=== PATIENT | male | born 1960 | race Caucasian/White ===

== ENCOUNTER 2019-06-17 07:28 | Day surgery (SDC) | payer MEDICAID ==
[~2019-06-17] VITALS: Ht 185.4 cm; Wt 79.5 kg
[2019-06-17 07:35] VITALS: BP 128/91
[2019-06-17] MEDS ORDERED: fentaNYL/PF 50MCG/1 ML 2ML syringe ONE (07:41)
[2019-06-17] MEDS ORDERED: MIDAZolam 5mg/5ml vial ONE (07:42)
[2019-06-17] MEDS ORDERED: LIDOcaine Viscous 15ml cup ONE (07:42)
[2019-06-17] MEDS ORDERED: VENL75CA55 PO (08:36)
[2019-06-17] MEDS ORDERED: FLO0.4C PO (08:37)
[2019-06-17 08:38] VITALS: BP 134/45
[2019-06-17] MEDS ORDERED: CLON-528 PO (08:38)
[2019-06-17] MEDS ORDERED: ATOR10TA11 PO (08:38)
[2019-06-17] MEDS ORDERED: METF-438 PO (08:39)
[2019-06-17] MEDS ORDERED: METF500T20 PO (08:40)
[2019-06-17] MEDS ORDERED: MULT-227 PO (08:41)
[2019-06-17] MEDS ORDERED: PANT-47 PO (08:42)
[2019-06-17] MEDS ORDERED: TEMA15CA5 PO (08:44)
[2019-06-17] MEDS ORDERED: TRAM50TA2 PO (08:46)
[2019-06-17] MEDS ORDERED: BUPR-94 PO (08:46)
[2019-06-17] MEDS ORDERED: KEP500T PO (08:47)
[2019-06-17 08:48] VITALS: BP 132/69
[2019-06-17] MEDS ORDERED: LAMO100T PO (08:48)
[2019-06-17] MEDS ORDERED: CLON-527 PO (08:48)
[2019-06-17] MEDS ORDERED: HALO5TAB PO (08:49)
[2019-06-17] MEDS ORDERED: TRIH5TAB2 PO (08:50)
[2019-06-17 08:58] VITALS: BP 129/70
[2019-06-17 09:08] VITALS: BP 149/88
== END 2019-06-17 09:10 | disposition home or self-care (01) ==
LOC: GI LAB 07:28
PROVIDERS: ATTEND Internal Medicine Gastroenterology
DX: R11.2 Nausea with vomiting, unspecified (principal); K21.0 Gastro-esophageal reflux disease with esophagitis; K44.9 Diaphragmatic hernia without obstruction or gangrene; K25.9 Gastric ulcer, unspecified as acute or chronic, without hemorrhage or perforation; K29.50 Unspecified chronic gastritis without bleeding
CPT/HCPCS: 43239; 99152; J2250; J3010; J7040; A4620

== ENCOUNTER 2021-03-07 11:40 | Inpatient (IN) | payer MEDICAID ==
[~2021-03-07] VITALS: Ht 167.6 cm; Wt 80.0 kg
[~2021-03-07 11:40] MED LIST: ATOR10TA11 PO; BUPR-94 PO; CLON-527 PO; CLON-528 PO; FLO0.4C PO; HALO5TAB PO; KEP500T PO; LAMO100T PO; METF-900 PO; MULT-227 PO; PANT-47 PO; TEMA15CA5 PO; TRAM50TA2 PO; TRIH5TAB3 PO; VENL75CA55 PO
[2021-03-07 12:14] LABS: BASOPHILS # (AUTO) 0.1 X10'3 (0-0.2); BASOPHILS % (AUTO) 1.1 % (0-1); EOSINOPHILS # (AUTO) 0.2 X10'3 (0-0.9); EOSINOPHILS % (AUTO) 2.5 % (0-6); LYMPHOCYTES # (AUTO) 1.2 X10'3 (1.1-4.8); LYMPHOCYTES % (AUTO) 16.6 % (21-51); MEAN CORPUSCULAR HEMOGLOBIN 24.3 PG (27.0-31.0); MEAN CORPUSCULAR HGB CONC 31.6 g/dL (33.0-36.5); MEAN CORPUSCULAR VOLUME 76.8 FL (78-98); MEAN PLATELET VOLUME 7.1 FL (7.4-10.4); MONOCYTES # (AUTO) 0.7 X10'3 (0-0.9); MONOCYTES % (AUTO) 9.7 % (2-12); NEUTROPHILS # (AUTO) 5.1 X10'3 (1.8-7.7); NEUTROPHILS % (AUTO) 70.1 % (42-75); PLATELET COUNT 393 X10'3 (140-440); RED CELL DISTRIBUTION WIDTH 19.9 % (11.5-14.5); WHITE BLOOD COUNT 7.3 X10'3 (4.5-11.0)
[2021-03-07 12:27] LABS: HEMATOCRIT 21.5 % (42.0-52.0); HEMOGLOBIN 6.8 g/dl (14.0-17.9); PARTIAL THROMBOPLASTIN TIME 24 SECONDS (22-32)
[2021-03-07 12:28] LABS: ALANINE AMINOTRANSFERASE 28 U/L (12-78); ALBUMIN 2.8 G/DL (3.4-5.0); ALBUMIN/GLOBULIN RATIO 0.9 (1.1-1.5); ALKALINE PHOSPHATASE 104 IU/L (46-116); ANION GAP 6 (8-16); ASPARTATE AMINO TRANSFERASE 23 U/L (10-37); BILIRUBIN,TOTAL 0.4 MG/DL (0.1-1.0); BLOOD UREA NITROGEN 19 MG/DL (7-18); BUN/CREATININE RATIO 25.3 (5.4-32.0); CALCIUM 8.2 MG/DL (8.5-10.1); CHLORIDE 108 MMOL/L (99-107); CREATININE 0.75 MG/DL (0.60-1.10); GLUCOSE 134 MG/DL (70-104); MAGNESIUM 1.9 MG/DL (1.5-2.4); POTASSIUM 3.7 MMOL/L (3.5-5.1); SODIUM 144 MMOL/L (135-145); TOTAL CARBON DIOXIDE 29.8 MMOL/L (24-32); TOTAL PROTEIN 5.8 G/DL (6.4-8.2); eGFR > 90 ML/MIN
[2021-03-07] MEDS ORDERED: LORazepam 2 mg/ml vial IV ONE ×2 (13:05→15:50)
[2021-03-07] MEDS: pantoprazole 40MG/NS 100ML BAG 100 ML IV SCH ×2 (13:13→19:16)
[2021-03-07 13:38] LABS: ANISOCYTOSIS 2+; HYPOCHROMASIA 2+; MICROCYTOSIS 1+; PLATELET ESTIMATE NORMAL
[2021-03-07 13:39] LABS: ELLIPTOCYTES 1+; SCHISTOCYTES FEW; TEAR DROP CELLS FEW
[2021-03-07] MEDS ORDERED: normal saline 1000ml 1,000 ML IV ONE (13:40)
--- NOTE | 2021-03-07 13:55 | NUR ---
PT'S MOTHER WAS CALLED, IT WAS REQUESTED BY PT'S RN TO SEE IF SHE COULD CONVINCE HER SON TO CONSENT TO A BLOOD TRANSFUSION FOR A GI BLEED. MESSAGE WAS LEFT ON PHONE #'S PROVIDER ON FILE
--- NOTE | 2021-03-07 14:19 | NUR ---
PT YELLING THAT HE IS HUNGRY, EXPLAINED THAT HE CAN NOT EAT DUE TO HAVING A POSSIBLE GI BLEED. PT REFUSING RECTAL EXAM OR ANY TREATMENT, STATING THAT "FUCK YOU...YOU ARE LYING, I DONT BELIEVE YOU, YOU DON'T KNOW WHAT YOU'RE TALKING ABOUT" PT STATING THAT HE WANTS TO GO HOME. PROVIDER NOTIFIED, DR ESPOSITO IS ON THE PHONE WITH HIS CONSERVITOR.
[2021-03-07] MEDS ORDERED: TRIH2TAB3 PO (15:06)
[2021-03-07] MEDS ORDERED: MUPI15CR12 TOP (15:06)
[2021-03-07] MEDS ORDERED: CLON1TAB95 PO (15:06)
[2021-03-07] MEDS ORDERED: TIOT18CA3 PO (15:06)
[2021-03-07] MEDS ORDERED: GABA-530 PO (15:06)
[2021-03-07] MEDS ORDERED: HYDR50TA65 PO (15:06)
[2021-03-07] MEDS ORDERED: TEMA7.5C2 PO (15:06)
[2021-03-07] MEDS ORDERED: FLO0.4C PO (15:08)
[2021-03-07] MEDS ORDERED: FINA5TAB11 PO (15:08)
[2021-03-07] MEDS ORDERED: potassium Cl 20 mEq SR tablet PO PRN ×2 (16:00)
[2021-03-07] MEDS ORDERED: magnesium 2GM in 50ml NS 50 ML IV PRN (16:00)
[2021-03-07] MEDS ORDERED: ondansetron/PF 4mg/2ml inj IV PRN (16:00)
[2021-03-07] MEDS ORDERED: magnesium Cl slow-release 64mg tablet PO PRN (16:00)
[2021-03-07] MEDS ORDERED: potassium CL 10mEq/100ml bag 100 ML IV PRN (16:00)
[2021-03-07] MEDS ORDERED: magnesium 4gm in 100ml NS 100 ML IV PRN (16:00)
[2021-03-07] MEDS ORDERED: acetaminophen 325mg tablet PO PRN (16:00)
[2021-03-07 16:12] VITALS: BP 95/53
[2021-03-07 16:43] VITALS: BP 96/60
[2021-03-07] MEDS: normal saline 1000ml 1,000 ML IV SCH (16:46)
[2021-03-07 17:10] VITALS: BP 102/63
--- NOTE | 2021-03-07 19:21 | NUR ---
Blood transfusion completed. No adverse reactions noted at this time.
[2021-03-07] MEDS: K and/or MAG REPLACEMENT MC SCH (20:31)
[2021-03-07 20:50] LABS: POTASSIUM 3.5 MMOL/L (3.5-5.1)
[2021-03-07] MEDS ORDERED: temazepam 15mg capsule PO PRN (21:00)
--- NOTE | 2021-03-07 21:39 | NUR ---
Patient verbally aggressive with this specifications writer. Patient was verbally redirected, and told nurse to leave room.
[2021-03-07 21:47] LABS: CLARITY,URINE SLIGHTLY CLOUDY (Clear); COLOR,URINE YELLOW (Yellow); UA COLLECTION TYPE NON-SPECIFIED
[2021-03-07 21:48] LABS: GLUCOSE, URINE NEGATIVE (Neg); KETONES,URINE NEGATIVE (Neg); LEUKOCYTE ESTERASE ,URINE NEGATIVE (Neg); NITRITES, URINE NEGATIVE (Neg); OCCULT BLOOD,URINE NEGATIVE (Neg); PROTEIN,URINE NEGATIVE (Neg); UROBILINOGEN,URINE 0.2 E.U/dL (0.2-1.0)
[2021-03-07 21:49] LABS: BACTERIA,URINE NONE SEEN /HPF (Neg); MUCUS STRANDS NONE SEEN /LPF (Neg); RBC,URINE 0-2 /HPF (0-2); SQUAMOUS EPITHELIAL CELL,UR FEW /LPF (FEW); WBC,URINE 0-4 /HPF (0-4)
[2021-03-08] MEDS: pantoprazole 40MG/NS 100ML BAG 100 ML IV SCH ×4 (01:00→11:10)
[2021-03-08 01:06] LABS: HEMOGLOBIN 7.4 g/dl (14.0-17.9); MEAN CORPUSCULAR HEMOGLOBIN 25.4 PG (27.0-31.0); MEAN PLATELET VOLUME 7.2 FL (7.4-10.4)
[2021-03-08 01:09] LABS: BASOPHILS % (AUTO) 0.5 % (0-1); EOSINOPHILS # (AUTO) 0.2 X10'3 (0-0.9); EOSINOPHILS % (AUTO) 2.8 % (0-6); HEMATOCRIT 22.6 % (42.0-52.0); LYMPHOCYTES # (AUTO) 1.6 X10'3 (1.1-4.8); LYMPHOCYTES % (AUTO) 18.9 % (21-51); MEAN CORPUSCULAR HGB CONC 32.9 g/dL (33.0-36.5); MEAN CORPUSCULAR VOLUME 77.1 FL (78-98); MONOCYTES # (AUTO) 0.9 X10'3 (0-0.9); MONOCYTES % (AUTO) 10.5 % (2-12); NEUTROPHILS # (AUTO) 5.7 X10'3 (1.8-7.7); NEUTROPHILS % (AUTO) 67.3 % (42-75); PLATELET COUNT 356 X10'3 (140-440); RED BLOOD COUNT 2.93 X10'6 (4.70-6.10); RED CELL DISTRIBUTION WIDTH 19.8 % (11.5-14.5); WHITE BLOOD COUNT 8.5 X10'3 (4.5-11.0)
[2021-03-08 01:13] LABS: ALBUMIN 2.5 G/DL (3.4-5.0); ANION GAP 5 (8-16); BLOOD UREA NITROGEN 17 MG/DL (7-18); CALCIUM 7.8 MG/DL (8.5-10.1); CHLORIDE 108 MMOL/L (99-107); CREATININE 0.68 MG/DL (0.60-1.10); GLUCOSE 137 MG/DL (70-104); POTASSIUM 3.6 MMOL/L (3.5-5.1); SODIUM 142 MMOL/L (135-145); TOTAL CARBON DIOXIDE 29.1 MMOL/L (24-32); eGFR > 90 ML/MIN
[2021-03-08 02:40] LABS: ANISOCYTOSIS 2+; ELLIPTOCYTES FEW; PLATELET ESTIMATE NORMAL; POLYCHROMASIA FEW
[2021-03-08 02:41] LABS: HYPOCHROMASIA 2+; MICROCYTOSIS 1+; SCHISTOCYTES FEW
[2021-03-08] MEDS: normal saline 1000ml 1,000 ML IV SCH ×3 (02:45→22:00)
--- NOTE | 2021-03-08 07:51 | NUR ---
GAVE REPORT TO SHAILA KNOX, PT TO GO TO ROOM 9726M
--- NOTE | 2021-03-08 07:52 | NUR ---
Patient in room ED 9. I have received report from Elvira LINTON Traveler and had the opportunity to ask questions and assume patient care.
[2021-03-08] MEDS: K and/or MAG REPLACEMENT MC SCH ×2 (08:00→20:00)
[2021-03-08 11:00] VITALS: BP 127/78
[2021-03-08] MEDS ORDERED: pantoprazole 40mg Tablet.DR PO SCH (12:00)
[2021-03-08 15:00] VITALS: BP 116/77
--- NOTE | 2021-03-08 15:17 | NUR ---
PAGER ID: [phone] MESSAGE: errol Johnson#[phone]- Pt still waiting for GI procedure. I just call GI lab they sated this was cancelled? early this am?? Can we also get a nicotine patch.. smokes 8 cigs/day. Pamela [facility] [phone]
[2021-03-08] MEDS: ipratropium 0.5 MG/2.5ML nebule IH SCH ×2 (15:18→20:16)
[2021-03-08] MEDS: mupirocin 2% nasal ointment 1gm UD NS SCH (15:54)
[2021-03-08] MEDS: haloperidol 5mg tablet PO SCH ×2 (15:54→21:44)
[2021-03-08] MEDS: gabapentin 100mg capsule PO SCH (15:54)
[2021-03-08] MEDS: venlafaxine XR 75mg capsule (Q24H) PO SCH (15:54)
[2021-03-08] MEDS: pantoprazole 40 MG vial IV SCH (15:55)
[2021-03-08] MEDS: trihexyphenidyl 2mg tablet PO SCH ×2 (15:55→21:46)
[2021-03-08] MEDS: nicotine 7mg patch - 24hr TD SCH (15:55)
[2021-03-08] MEDS: tamsulosin 0.4mg capsule PO SCH (15:55)
[2021-03-08] MEDS: finasteride 5mg tablet PO SCH (15:55)
[2021-03-08] MEDS: buproprion 150mg XL (24-hour) tablet PO SCH (15:55)
[2021-03-08 18:00] VITALS: BP 110/74
--- NOTE | 2021-03-08 18:41 | NUR ---
Problems reprioritized. Patient report given, questions answered & plan of care reviewed with Frieda LINTON.
[2021-03-08] MEDS: Temazepam 7.5 MG PO SCH (21:00)
[2021-03-08] MEDS: clonazePAM 1mg tablet PO SCH (21:45)
[2021-03-08] MEDS: lamoTRIgine 100mg tablet PO SCH (21:45)
[2021-03-08] MEDS: traMADol 50MG tablet PO SCH (21:45)
[2021-03-08] MEDS: levetiracetam 250mg tablet PO SCH (21:47)
[2021-03-08] MEDS: hydrOXYzine 25 MG tablet PO SCH (21:47)
[2021-03-08 22:00] VITALS: BP 127/81
[2021-03-09] VITALS (11 sets, daily range): BP systolic 103–134; BP diastolic 60–89
[2021-03-09] MEDS: mupirocin 2% nasal ointment 1gm UD NS SCH ×3 (00:25→16:00)
[2021-03-09] MEDS: gabapentin 100mg capsule PO SCH ×3 (00:25→16:09)
[2021-03-09] MEDS: ipratropium 0.5 MG/2.5ML nebule IH SCH ×4 (02:00→19:40)
[2021-03-09] MEDS: HYDROcodone/acetaminophen 5mg/325mg tablet PO PRN (02:12)
[2021-03-09] MEDS: pantoprazole 40 MG vial IV SCH (02:22)
--- NOTE | 2021-03-09 07:00 | NUR ---
Problems reprioritized. Patient report given, questions answered & plan of care reviewed with SHAILA Brown.
--- NOTE | 2021-03-09 07:00 | NUR ---
IV assessed. Patent flushed works great
[2021-03-09 07:29] LABS: BASOPHILS # (AUTO) 0.1 X10'3 (0-0.2); BASOPHILS % (AUTO) 0.8 % (0-1); EOSINOPHILS # (AUTO) 0.3 X10'3 (0-0.9); EOSINOPHILS % (AUTO) 4.3 % (0-6); HEMOGLOBIN 7.5 g/dl (14.0-17.9); LYMPHOCYTES # (AUTO) 1.4 X10'3 (1.1-4.8); LYMPHOCYTES % (AUTO) 20.9 % (21-51); MEAN CORPUSCULAR HEMOGLOBIN 24.9 PG (27.0-31.0); MEAN CORPUSCULAR HGB CONC 32.4 g/dL (33.0-36.5); MEAN CORPUSCULAR VOLUME 76.7 FL (78-98); MEAN PLATELET VOLUME 7.3 FL (7.4-10.4); MONOCYTES # (AUTO) 0.7 X10'3 (0-0.9); NEUTROPHILS # (AUTO) 4.2 X10'3 (1.8-7.7); PLATELET COUNT 411 X10'3 (140-440); RED BLOOD COUNT 2.99 X10'6 (4.70-6.10); RED CELL DISTRIBUTION WIDTH 19.6 % (11.5-14.5); WHITE BLOOD COUNT 6.6 X10'3 (4.5-11.0)
[2021-03-09] MEDS: venlafaxine XR 75mg capsule (Q24H) PO SCH (08:00)
[2021-03-09] MEDS: K and/or MAG REPLACEMENT MC SCH ×2 (08:00→20:00)
[2021-03-09] MEDS: buproprion 150mg XL (24-hour) tablet PO SCH (08:00)
[2021-03-09 08:04] LABS: ALBUMIN 2.4 G/DL (3.4-5.0); ANION GAP 10 (8-16); BLOOD UREA NITROGEN 9 MG/DL (7-18); BUN/CREATININE RATIO 14.3 (5.4-32.0); CALCIUM 7.7 MG/DL (8.5-10.1); CHLORIDE 111 MMOL/L (99-107); CREATININE 0.63 MG/DL (0.60-1.10); GLUCOSE 125 MG/DL (70-104); MAGNESIUM 1.8 MG/DL (1.5-2.4); POTASSIUM 3.7 MMOL/L (3.5-5.1); SODIUM 145 MMOL/L (135-145); TOTAL CARBON DIOXIDE 24.4 MMOL/L (24-32); eGFR > 90 ML/MIN
[2021-03-09 09:10] LABS: PLATELET ESTIMATE NORMAL
[2021-03-09 09:11] LABS: ANISOCYTOSIS 2+; ELLIPTOCYTES FEW; HYPOCHROMASIA 2+; MICROCYTOSIS 1+; SCHISTOCYTES FEW
[2021-03-09 09:33] LABS: HEMOGLOBIN A1C 6.5 % (4.5-6.2)
[2021-03-09] MEDS ORDERED: PANT-47 PO (09:36)
[2021-03-09] MEDS ORDERED: FERR-39 PO (09:37)
[2021-03-09] MEDS: multivitamins, therapeutics tablet PO SCH (10:34)
[2021-03-09] MEDS: clonazePAM 1mg tablet PO SCH ×2 (10:34→19:59)
[2021-03-09] MEDS: traMADol 50MG tablet PO SCH ×2 (10:35→19:58)
[2021-03-09] MEDS: atorvastatin 10mg tablet PO SCH (10:35)
[2021-03-09] MEDS: lamoTRIgine 100mg tablet PO SCH ×2 (10:35→19:57)
[2021-03-09] MEDS: haloperidol 5mg tablet PO SCH ×3 (10:36→20:21)
[2021-03-09] MEDS: levetiracetam 250mg tablet PO SCH ×2 (10:36→19:57)
[2021-03-09] MEDS: tamsulosin 0.4mg capsule PO SCH (10:36)
[2021-03-09] MEDS: nicotine 7mg patch - 24hr TD SCH (10:37)
[2021-03-09] MEDS: trihexyphenidyl 2mg tablet PO SCH ×3 (10:37→20:21)
[2021-03-09] MEDS: finasteride 5mg tablet PO SCH (10:38)
[2021-03-09] MEDS: normal saline 1000ml 1,000 ML IV SCH ×2 (10:49→18:00)
[2021-03-09] MEDS: pantoprazole 40MG/NS 100ML BAG 100 ML IV SCH ×3 (11:38→20:40)
--- NOTE | 2021-03-09 12:57 | NUR ---
PAGER ID: [phone] MESSAGE: Danny Rodriguez [id number] Pt. is symptomatic while ambulating. C/o dizziness and stumbles a bit. Do you still want me to discharge pt? Stephanie [phone]
--- NOTE | 2021-03-09 13:09 | NUR ---
PAGER ID: [phone] MESSAGE: Danny Rodriguez [id number] Coservator number Jovon Urbina [phone] Stephanie [phone]
--- NOTE | 2021-03-09 13:11 | NUR ---
CM called. If pt. leaves on 03/10/21 RN needs to call transport and speak with Kaley to arrange transport. There is no Cm on .
--- NOTE | 2021-03-09 13:47 | NUR ---
Malnutrition Consult: Pt admit DX possible GIB yet refuses endoscopy per EMR. Pt reports wt loss but no specific amount per RN Malnutrition Screen in EMR w/ no scaled wt hx or scaled wt this admit. Current reported wt stable from only other admit June 2019 per EMR. Pt has no edema/wounds now advanced to regular diet PO meals pending. Pt lacks minimum malnutrition criteria at this time. Will monitor for further malnutrition criteria and nutrition intervention needs this admit. Addendum: 03/09/21 at [address] Amended: Links added.
--- NOTE | 2021-03-09 17:18 | NUR ---
PAGER ID: [phone] MESSAGE: Danny Rodriguez [id number] 1 unit given. Hemogram ordered per protocol. If hemogram above 7 and pt. not symptomatic ambulating, do you still want me to give 2nd unit? Stephanie [phone]
--- NOTE | 2021-03-09 18:27 | NUR ---
Report given to Frieda LINTON. She is aware hospitalist has ordered 2 units but that protocol is waiting for pending hemocult and reassessing need for 2nd unit. Last [employer]angel[employer] conservation laborer having a difficult time drawing pt. hemogram. Oncoming RN aware. Pt in his room enjoying his dinner at this time.
--- NOTE | 2021-03-09 18:55 | NUR ---
Patient in room PCU 3014. I have received report from SHAILA Brown and had the opportunity to ask questions and assume patient care.
--- NOTE | 2021-03-09 18:55 | NUR ---
Patient in room PCU 3014. I have received report from Stephanie LINTON and had the opportunity to ask questions and assume patient care.
[2021-03-09 20:02] LABS: HEMOGLOBIN 8.8 g/dl (14.0-17.9); MEAN CORPUSCULAR HEMOGLOBIN 25.7 PG (27.0-31.0); MEAN CORPUSCULAR HGB CONC 32.5 g/dL (33.0-36.5); MEAN PLATELET VOLUME 7.5 FL (7.4-10.4); PLATELET COUNT 431 X10'3 (140-440); RED BLOOD COUNT 3.42 X10'6 (4.70-6.10); RED CELL DISTRIBUTION WIDTH 20.7 % (11.5-14.5); WHITE BLOOD COUNT 7.3 X10'3 (4.5-11.0)
--- NOTE | 2021-03-09 20:09 | NUR ---
Called Dr. Negrete on cell to let her know about the patient having been ordered 2 units [address] blood by [address] Nelson on [place]. Wanted to clarify what to do for patient since it is protocol to infuse 1 unit of blood then get hemogram. H&H came back 8.8.0 up from .09/05 Was unable to clarify this patient's status with her, as she was only wanting to hear urgent concerns at this time.
[2021-03-09] MEDS: hydrOXYzine 25 MG tablet PO SCH (20:21)
[2021-03-09] MEDS: Temazepam 7.5 MG PO SCH (21:00)
[2021-03-10] VITALS (8 sets, daily range): BP systolic 86–124; BP diastolic 53–87
[2021-03-10] MEDS: ipratropium 0.5 MG/2.5ML nebule IH SCH ×4 (02:00→20:53)
--- NOTE | 2021-03-10 05:00 | NUR ---
Pt had a 2nd unit of blood ordered by Dr. Nelson on 03/09/21 after hemogram results, pt H&H was 8.8 and 27.0 the 2nd unit of blood was held by Dr. Negrete.
[2021-03-10] MEDS: normal saline 1000ml 1,000 ML IV SCH ×2 (05:32→14:53)
--- NOTE | 2021-03-10 06:33 | NUR ---
Problems reprioritized. Patient report given, questions answered & plan of care reviewed with SHAILA Perez.
[2021-03-10 06:39] LABS: BASOPHILS # (AUTO) 0.1 X10'3 (0-0.2); BASOPHILS % (AUTO) 0.8 % (0-1); EOSINOPHILS # (AUTO) 0.2 X10'3 (0-0.9); EOSINOPHILS % (AUTO) 2.5 % (0-6); HEMATOCRIT 26.4 % (42.0-52.0); HEMOGLOBIN 8.8 g/dl (14.0-17.9); LYMPHOCYTES # (AUTO) 1.6 X10'3 (1.1-4.8); LYMPHOCYTES % (AUTO) 19.9 % (21-51); MEAN CORPUSCULAR HEMOGLOBIN 26.1 PG (27.0-31.0); MEAN CORPUSCULAR HGB CONC 33.2 g/dL (33.0-36.5); MEAN CORPUSCULAR VOLUME 78.9 FL (78-98); MEAN PLATELET VOLUME 7.1 FL (7.4-10.4); MONOCYTES # (AUTO) 0.9 X10'3 (0-0.9); MONOCYTES % (AUTO) 11.1 % (2-12); NEUTROPHILS # (AUTO) 5.2 X10'3 (1.8-7.7); NEUTROPHILS % (AUTO) 65.7 % (42-75); PLATELET COUNT 440 X10'3 (140-440); RED BLOOD COUNT 3.35 X10'6 (4.70-6.10); RED CELL DISTRIBUTION WIDTH 20.4 % (11.5-14.5); WHITE BLOOD COUNT 7.9 X10'3 (4.5-11.0)
[2021-03-10 06:44] LABS: ALBUMIN 2.4 G/DL (3.4-5.0); ANION GAP 8 (8-16); BLOOD UREA NITROGEN 14 MG/DL (7-18); BUN/CREATININE RATIO 20.3 (5.4-32.0); CHLORIDE 106 MMOL/L (99-107); CREATININE 0.69 MG/DL (0.60-1.10); GLUCOSE 147 MG/DL (70-104); MAGNESIUM 1.7 MG/DL (1.5-2.4); POTASSIUM 3.7 MMOL/L (3.5-5.1); SODIUM 140 MMOL/L (135-145); TOTAL CARBON DIOXIDE 26.1 MMOL/L (24-32); eGFR > 90 ML/MIN
--- NOTE | 2021-03-10 06:46 | NUR ---
Patient in room PCU 3014. I have received report from SHAILA Malave and had the opportunity to ask questions and assume patient care.
[2021-03-10] MEDS: nicotine 7mg patch - 24hr TD SCH (07:33)
[2021-03-10] MEDS: multivitamins, therapeutics tablet PO SCH (07:37)
[2021-03-10] MEDS: clonazePAM 1mg tablet PO SCH ×2 (07:37→21:13)
[2021-03-10] MEDS: gabapentin 100mg capsule PO SCH ×3 (07:37→16:13)
[2021-03-10] MEDS: buPROPion SR 150mg tablet PO SCH (07:37)
[2021-03-10] MEDS: tamsulosin 0.4mg capsule PO SCH ×2 (07:37→17:26)
[2021-03-10] MEDS: trihexyphenidyl 2mg tablet PO SCH ×3 (07:37→21:04)
[2021-03-10] MEDS: atorvastatin 10mg tablet PO SCH (07:37)
[2021-03-10] MEDS: mupirocin 2% nasal ointment 1gm UD NS SCH ×3 (07:38→16:13)
[2021-03-10] MEDS: lamoTRIgine 100mg tablet PO SCH ×2 (07:38→21:04)
[2021-03-10] MEDS: levetiracetam 250mg tablet PO SCH ×2 (07:38→21:13)
[2021-03-10] MEDS: traMADol 50MG tablet PO SCH ×2 (07:38→21:07)
[2021-03-10] MEDS: haloperidol 5mg tablet PO SCH ×3 (07:38→21:07)
[2021-03-10] MEDS: finasteride 5mg tablet PO SCH (07:38)
[2021-03-10] MEDS: venlafaxine XR 75mg capsule (Q24H) PO SCH (08:00)
[2021-03-10] MEDS: K and/or MAG REPLACEMENT MC SCH ×2 (08:00→20:00)
--- NOTE | 2021-03-10 10:32 | NUR ---
PAGER ID: [phone] MESSAGE: [id number]- Alexia Rodriguez- conserver #([phone]) Jovon. Pt felt dizzy upon standing to use urinal - lying 86/53 82, lying 100/64 74, standin 95/59 91- [facility] [id number]
[2021-03-10] MEDS: HYDROcodone/acetaminophen 5mg/325mg tablet PO PRN (16:18)
--- NOTE | 2021-03-10 18:23 | NUR ---
Problems reprioritized. Patient report given, questions answered & plan of care reviewed with SHAILA DAVIS.
[2021-03-10] MEDS: Temazepam 7.5 MG PO SCH (21:00)
[2021-03-10] MEDS: pantoprazole 40MG/NS 100ML BAG 100 ML IV SCH (21:03)
[2021-03-10] MEDS: hydrOXYzine 25 MG tablet PO SCH (21:14)
[2021-03-11] MEDS: normal saline 1000ml 1,000 ML IV SCH (00:15)
[2021-03-11] MEDS: mupirocin 2% nasal ointment 1gm UD NS SCH ×2 (00:17→07:09)
[2021-03-11] MEDS: gabapentin 100mg capsule PO SCH ×3 (00:17→15:26)
[2021-03-11] MEDS: ipratropium 0.5 MG/2.5ML nebule IH SCH ×3 (02:00→14:44)
[2021-03-11 06:00] VITALS: BP 122/76
[2021-03-11] MEDS: haloperidol 5mg tablet PO SCH ×2 (07:09→13:37)
[2021-03-11] MEDS: trihexyphenidyl 2mg tablet PO SCH ×2 (07:09→13:37)
[2021-03-11] MEDS: tamsulosin 0.4mg capsule PO SCH (07:09)
[2021-03-11] MEDS: buPROPion SR 150mg tablet PO SCH (07:09)
[2021-03-11] MEDS: clonazePAM 1mg tablet PO SCH (07:10)
[2021-03-11] MEDS: levetiracetam 250mg tablet PO SCH (07:10)
[2021-03-11] MEDS: traMADol 50MG tablet PO SCH (07:10)
[2021-03-11] MEDS: multivitamins, therapeutics tablet PO SCH (07:10)
[2021-03-11] MEDS: lamoTRIgine 100mg tablet PO SCH (07:10)
[2021-03-11] MEDS: atorvastatin 10mg tablet PO SCH (07:11)
[2021-03-11] MEDS: nicotine 7mg patch - 24hr TD SCH (07:11)
[2021-03-11] MEDS: finasteride 5mg tablet PO SCH (07:12)
[2021-03-11] MEDS ORDERED: pantoprazole 40mg Tablet.DR PO SCH (08:00)
[2021-03-11 08:02] LABS: BASOPHILS # (AUTO) 0.1 X10'3 (0-0.2); BASOPHILS % (AUTO) 0.9 % (0-1); EOSINOPHILS # (AUTO) 0.3 X10'3 (0-0.9); EOSINOPHILS % (AUTO) 3.1 % (0-6); LYMPHOCYTES # (AUTO) 1.4 X10'3 (1.1-4.8); MEAN CORPUSCULAR HGB CONC 33.2 g/dL (33.0-36.5); MEAN CORPUSCULAR VOLUME 78.3 FL (78-98); MEAN PLATELET VOLUME 7.4 FL (7.4-10.4); MONOCYTES % (AUTO) 9.7 % (2-12); NEUTROPHILS # (AUTO) 7.2 X10'3 (1.8-7.7); NEUTROPHILS % (AUTO) 72.3 % (42-75); PLATELET COUNT 459 X10'3 (140-440); RED BLOOD COUNT 3.45 X10'6 (4.70-6.10); RED CELL DISTRIBUTION WIDTH 20.2 % (11.5-14.5); WHITE BLOOD COUNT 9.9 X10'3 (4.5-11.0)
[2021-03-11 08:13] LABS: ALBUMIN 2.5 G/DL (3.4-5.0); ANION GAP 6 (8-16); BLOOD UREA NITROGEN 14 MG/DL (7-18); BUN/CREATININE RATIO 19.2 (5.4-32.0); CALCIUM 8.2 MG/DL (8.5-10.1); CHLORIDE 108 MMOL/L (99-107); CREATININE 0.73 MG/DL (0.60-1.10); GLUCOSE 173 MG/DL (70-104); MAGNESIUM 1.8 MG/DL (1.5-2.4); SODIUM 141 MMOL/L (135-145); TOTAL CARBON DIOXIDE 26.6 MMOL/L (24-32); eGFR > 90 ML/MIN
[2021-03-11 08:30] LABS: ANISOCYTOSIS 3+; HYPOCHROMASIA 1+; MICROCYTOSIS 1+; PLATELET ESTIMATE INCREASED
[2021-03-11 08:35] LABS: POLYCHROMASIA FEW
[2021-03-11 11:00] VITALS: BP 109/62
== END 2021-03-11 16:35 | DRG 663 ==
LOC: ER 11:40 → ED HOLD 16:02 → PCU 3S 03-08 08:30
PROVIDERS: ADMIT Internal Medicine; ATTEND Internal Medicine
PROC: 30233N1 Transfusion of Nonautologous Red Blood Cells into Peripheral Vein, Percutaneous Approach (ICD-10-PCS; principal; 2021-03-07)
DX: D50.0 Iron deficiency anemia secondary to blood loss (chronic) (principal); N13.8 Other obstructive and reflux uropathy; K92.2 Gastrointestinal hemorrhage, unspecified; E11.9 Type 2 diabetes mellitus without complications; E78.00 Pure hypercholesterolemia, unspecified; E78.5 Hyperlipidemia, unspecified; F17.210 Nicotine dependence, cigarettes, uncomplicated; E86.9 Volume depletion, unspecified; F20.9 Schizophrenia, unspecified; F32.A Depression, unspecified; G40.909 Epilepsy, unspecified, not intractable, without status epilepticus; T44.6X5A Adverse effect of alpha-adrenoreceptor antagonists, initial encounter; G47.00 Insomnia, unspecified; R55 Syncope and collapse; G89.29 Other chronic pain; N40.1 Benign prostatic hyperplasia with lower urinary tract symptoms; Z79.84 Long term (current) use of oral hypoglycemic drugs; Z79.899 Other long term (current) drug therapy; Z85.528 Personal history of other malignant neoplasm of kidney; Z87.11 Personal history of peptic ulcer disease; Z88.0 Allergy status to penicillin; Y92.89 Other specified places as the place of occurrence of the external cause
CPT/HCPCS: 36415; 36430; 80048; 80053; 81001; 82948; 83036; 83735; 84132; 85008; 85025; 85027; 85610; 85730; 86885; 86900; 86901; 86920; 93005; 94640; 94760; 96374; 97116; 97162; 97530; 99285; C9113; G0378; J2060; J7030; P9016; Q0177

== ENCOUNTER 2021-10-03 20:14 | Inpatient (IN) | payer MEDICAID ==
[~2021-10-03] VITALS: Ht 185.4 cm; Wt 79.5 kg
[~2021-10-03 20:14] MED LIST changes: -CLON-527 PO; -CLON-528 PO; +CLON1TAB95 PO; +FERR-39 PO; +FINA5TAB11 PO; +GABA-530 PO; +HYDR50TA65 PO; +MUPI15CR12 TOP; -TEMA15CA5 PO; +TEMA7.5C2 PO; +TIOT18CA3 PO; +TRIH2TAB3 PO; -TRIH5TAB3 PO
[2021-10-03 20:39] LABS: MEAN CORPUSCULAR HEMOGLOBIN 15.7 PG (27.0-31.0); MEAN CORPUSCULAR HGB CONC 28.2 g/dL (33.0-36.5); MEAN CORPUSCULAR VOLUME 55.9 FL (78-98); MEAN PLATELET VOLUME 8.1 FL (7.4-10.4); PLATELET COUNT 325 X10'3 (140-440); RED BLOOD COUNT 3.18 X10'6 (4.70-6.10); WHITE BLOOD COUNT 5.5 X10'3 (4.5-11.0)
[2021-10-03 20:51] LABS: HEMATOCRIT 17.8 % (42.0-52.0)
[2021-10-03 20:55] LABS: ALANINE AMINOTRANSFERASE 13 U/L (12-78); ALKALINE PHOSPHATASE 95 IU/L (46-116); ANION GAP 6 (8-16); ASPARTATE AMINO TRANSFERASE 12 U/L (10-37); BILIRUBIN,TOTAL 0.2 MG/DL (0.1-1.0); BLOOD UREA NITROGEN 18 MG/DL (7-18); BUN/CREATININE RATIO 25.7 (5.4-32.0); CALCIUM 8.4 MG/DL (8.5-10.1); CHLORIDE 106 MMOL/L (99-107); GLUCOSE 111 MG/DL (70-104); POTASSIUM 4.1 MMOL/L (3.5-5.1); SODIUM 139 MMOL/L (135-145); TOTAL CARBON DIOXIDE 27.1 MMOL/L (24-32); eGFR > 90 ML/MIN
[2021-10-03] MEDS ORDERED: temazepam 15mg capsule PO PRN (21:00)
[2021-10-03] MEDS ORDERED: ACET-3080 PO (21:20)
[2021-10-03] MEDS ORDERED: HYDR50CA PO (21:24)
[2021-10-03 21:29] LABS: NUCLEATED RED BLOOD CELLS 1 /100WBC (0-0); TOTAL CELLS COUNTED 100
[2021-10-03 21:30] LABS: ANISOCYTOSIS 3+; PLATELET ESTIMATE NORMAL
[2021-10-03] MEDS ORDERED: [UNRECOGNIZED DRUG - CODE] (21:30)
[2021-10-03 21:31] LABS: HYPOCHROMASIA 2+; MICROCYTOSIS 1+; POIKILOCYTOSIS 2+; POLYCHROMASIA FEW; TARGET CELLS 2+
[2021-10-03 21:32] LABS: SCHISTOCYTES 2+
[2021-10-03] MEDS ORDERED: acetaminophen 325mg tablet PO PRN ×2 (21:50)
[2021-10-03] MEDS ORDERED: mag hydrox/Alum hydrox/simeth 30ml oral suspension PO PRN (21:50)
[2021-10-03] MEDS ORDERED: diphenhydrAMINE 25mg capsule PO PRN (21:50)
[2021-10-03] MEDS ORDERED: ondansetron/PF 4mg/2ml inj IV PRN (21:50)
[2021-10-03] MEDS ORDERED: acetaminophen 650mg rectal suppository RC PRN (21:50)
[2021-10-03] MEDS ORDERED: bisacodyl 10mg suppository rectal RC PRN (21:50)
[2021-10-03] MEDS ORDERED: diphenhydrAMINE 50 mg/ml inj IV PRN (21:50)
[2021-10-03] MEDS ORDERED: morphine 2 MG/ML inj. syringe IV PRN ×2 (21:50)
[2021-10-03] MEDS ORDERED: magnesium hydroxide 30ml (MOM) UD suspension PO PRN (21:50)
[2021-10-03] MEDS ORDERED: ondansetron 4mg rapidly disintigrating tab PO PRN (21:50)
[2021-10-03] MEDS ORDERED: HYDROcodone/acetaminophen 5mg/325mg tablet PO PRN (21:50)
[2021-10-03] MEDS ORDERED: HYDROcodone/acetaminophen 10/325mg tab PO PRN (21:50)
[2021-10-03] MEDS ORDERED: ringers solution, lacted 1,000 ML IV ONE (21:55)
[2021-10-03] MEDS ORDERED: dextrose 50%-water 50ml dispensing syringe IV PRN ×2 (21:55)
[2021-10-03] MEDS ORDERED: insulin Lispro (HumaLOG) vial - multi-dose SQ SCH (21:55)
[2021-10-03] MEDS ORDERED: DEXTROSE 15 GM of carb/4 tabs (each vial/BOTTLE has 4 tablets) PO PRN ×2 (21:55)
[2021-10-03] MEDS ORDERED: MESSAGE TO PHARMACY PO ONE (21:55)
[2021-10-03] MEDS ORDERED: glucagon, human recombinant 1mg kit SUBCUT PRN (21:55)
[2021-10-03 22:09] LABS: APTT 26 SECONDS (22-32)
[2021-10-03 22:11] LABS: HEMOGLOBIN A1C 7.3 % (4.5-6.2)
--- NOTE | 2021-10-03 22:17 | NUR ---
HAVE TO USE DOWNTIME SHEET FOR BLOOD.
[2021-10-03 22:21] LABS: CREATINE KINASE 39 U/L (39-308); LIPASE 81 U/L (73-393); MAGNESIUM 1.7 MG/DL (1.5-2.4); PHOSPHORUS 3.5 MG/DL (2.3-4.5)
[2021-10-03 22:28] LABS: ETHANOL < 0.010 GM/DL (0.0-0.010)
[2021-10-04] VITALS (11 sets, daily range): BP systolic 126–155; BP diastolic 71–100
[2021-10-04 00:24] LABS: URINE AMPHETAMINE SCREEN NEGATIVE (Neg); URINE BARBITUATE SCREEN NEGATIVE (Neg); URINE BENZODIAZEPINES SCREEN NEGATIVE (Neg); URINE CANNABINOID SCREEN NEGATIVE (Neg); URINE COCAINE SCREEN NEGATIVE (Neg); URINE METHADONE SCREEN NEGATIVE (Neg); URINE OPIATE SCREEN NEGATIVE (Neg); URINE PHENCYCLIDINE SCREEN NEGATIVE (Neg)
--- NOTE | 2021-10-04 00:48 | NUR ---
Rec'd report from SHAILA Anguiano
[2021-10-04 01:08] LABS: MEAN CORPUSCULAR HEMOGLOBIN 17.7 PG (27.0-31.0); MEAN CORPUSCULAR HGB CONC 29.3 g/dL (33.0-36.5); MEAN CORPUSCULAR VOLUME 60.2 FL (78-98); MEAN PLATELET VOLUME 8.1 FL (7.4-10.4); PLATELET COUNT 326 X10'3 (140-440); RED BLOOD COUNT 3.63 X10'6 (4.70-6.10); RED CELL DISTRIBUTION WIDTH 23.9 % (11.5-14.5)
[2021-10-04 01:15] LABS: HEMATOCRIT 21.8 % (42.0-52.0); HEMOGLOBIN 6.4 g/dl (14.0-17.9)
[2021-10-04 01:23] LABS: ALANINE AMINOTRANSFERASE 16 U/L (12-78); ALKALINE PHOSPHATASE 94 IU/L (46-116); ANION GAP 6 (8-16); ASPARTATE AMINO TRANSFERASE 16 U/L (10-37); BILIRUBIN,TOTAL 0.3 MG/DL (0.1-1.0); BLOOD UREA NITROGEN 16 MG/DL (7-18); BUN/CREATININE RATIO 22.9 (5.4-32.0); CALCIUM 8.5 MG/DL (8.5-10.1); CHLORIDE 106 MMOL/L (99-107); CHOL/HDL RATIO 2.3 (0.00-4.99); CHOLESTEROL 127 MG/DL (0-200); GLUCOSE 106 MG/DL (70-104); HDL CHOLESTEROL 55 MG/DL (35-60); LDL CHOLESTEROL 57 MG/DL (50-100); POTASSIUM 4.2 MMOL/L (3.5-5.1); SODIUM 139 MMOL/L (135-145); TOTAL CARBON DIOXIDE 26.9 MMOL/L (24-32); TOTAL PROTEIN 6.1 G/DL (6.4-8.2); TRIGLYCERIDES 40 MG/DL (20-135); eGFR > 90 ML/MIN
--- NOTE | 2021-10-04 01:59 | NUR ---
Patient arrived from the ER and ambulated to his bed after using the bathroom. He refused to take of pants, but let us put him in a gown. He wasn't really interested in what was happening and why, he only wanted to go back to sleep.
[2021-10-04 02:49] LABS: ANISOCYTOSIS 3+; PLATELET ESTIMATE NORMAL; POIKILOCYTOSIS 2+; TOTAL CELLS COUNTED 100
[2021-10-04 02:50] LABS: HYPOCHROMASIA 2+; MICROCYTOSIS 1+; POLYCHROMASIA FEW; SCHISTOCYTES 2+; TARGET CELLS 2+
[2021-10-04] MEDS: pantoprazole 40MG/NS 100ML BAG 100 ML IV SCH ×6 (04:17→21:00)
[2021-10-04] MEDS: normal saline 1000ml 1,000 ML IV SCH ×3 (04:17→17:50)
[2021-10-04] MEDS ORDERED: MAGN400O6 PO (06:02)
[2021-10-04] MEDS ORDERED: PANT-47 PO (06:02)
[2021-10-04] MEDS ORDERED: ACET-3080 PO (06:02)
[2021-10-04] MEDS ORDERED: BISA-78 PO (06:02)
[2021-10-04] MEDS ORDERED: BISA10SU60 RC (06:02)
[2021-10-04] MEDS ORDERED: LOPE2TAB25 PO ×2 (06:02)
[2021-10-04] MEDS ORDERED: LORA-269 PO (06:02)
--- NOTE | 2021-10-04 06:23 | NUR ---
Problems reprioritized. Patient report given, questions answered & plan of care reviewed with SHAILA Muse.
[2021-10-04 07:26] LABS: HEMATOCRIT 26.9 % (42.0-52.0); HEMOGLOBIN 7.9 g/dl (14.0-17.9); MEAN CORPUSCULAR HEMOGLOBIN 18.7 PG (27.0-31.0); MEAN CORPUSCULAR HGB CONC 29.5 g/dL (33.0-36.5); MEAN CORPUSCULAR VOLUME 63.2 FL (78-98); MEAN PLATELET VOLUME 8.6 FL (7.4-10.4); PLATELET COUNT 299 X10'3 (140-440); RED BLOOD COUNT 4.25 X10'6 (4.70-6.10); RED CELL DISTRIBUTION WIDTH 29.8 % (11.5-14.5); WHITE BLOOD COUNT 7.6 X10'3 (4.5-11.0)
[2021-10-04] MEDS: docusate sod 100mg capsule PO SCH ×2 (08:00→20:00)
--- NOTE | 2021-10-04 10:38 | NUR ---
Diabetes consult: Noted pt w/ hx of DM A1c 7.3 fair control. Written DM ed w/ RD contact info placed in pt chart Addendum: 10/04/21 at [address] Amended: Links added.
[2021-10-04] MEDS: nicotine 21mg patch - 24 hr TD SCH (13:20)
--- NOTE | 2021-10-04 13:30 | NUR ---
Patients 0600 protonix not administered due to high patient load of 5-1. Floor is out of ratio and i was unable to give medications on time.
[2021-10-04] MEDS ORDERED: bisacodyl 10mg suppository rectal RC PRN (15:10)
[2021-10-04] MEDS ORDERED: LORazepam 1 MG tablet PO PRN (15:10)
[2021-10-04] MEDS ORDERED: magnesium hydroxide 30ml (MOM) UD suspension PO PRN (15:10)
[2021-10-04] MEDS ORDERED: loperamide 2mg capsule PO PRN (15:10)
[2021-10-04] MEDS ORDERED: bisacodyl 5mg tablet.DR PO PRN ×2 (15:10)
[2021-10-04] MEDS: gabapentin 100mg capsule PO SCH (16:12)
[2021-10-04] MEDS ORDERED: pantoprazole 40mg Tablet.DR PO SCH (20:00)
[2021-10-04] MEDS ORDERED: LOPERAMIDE HCL PO SCH (20:00)
[2021-10-04] MEDS ORDERED: hydrOXYzine 25 MG tablet PO SCH (21:00)
[2021-10-04] MEDS ORDERED: TEMAZEPAM 7.5 MG PO SCH (21:00)
[2021-10-04] MEDS: lamoTRIgine 100mg tablet PO SCH (22:27)
[2021-10-04] MEDS: levetiracetam 250mg tablet PO SCH (22:27)
[2021-10-04] MEDS: haloperidol 5mg tablet PO SCH (22:27)
[2021-10-04] MEDS: clonazePAM 1mg tablet PO SCH (22:28)
[2021-10-04] MEDS: traMADol 50MG tablet PO SCH (22:28)
[2021-10-04] MEDS: trihexyphenidyl 2mg tablet PO SCH (22:28)
[2021-10-05] MEDS: gabapentin 100mg capsule PO SCH ×2 (00:16→09:29)
[2021-10-05] MEDS: pantoprazole 40MG/NS 100ML BAG 100 ML IV SCH ×2 (01:00→05:57)
[2021-10-05 02:00] VITALS: BP 114/72
[2021-10-05] MEDS: normal saline 1000ml 1,000 ML IV SCH (03:50)
[2021-10-05 07:00] VITALS: BP 122/77
[2021-10-05 07:03] LABS: ALANINE AMINOTRANSFERASE 14 U/L (12-78); ALBUMIN 3.2 G/DL (3.4-5.0); ALKALINE PHOSPHATASE 87 IU/L (46-116); ANION GAP 12 (8-16); ASPARTATE AMINO TRANSFERASE 15 U/L (10-37); BILIRUBIN,TOTAL 0.8 MG/DL (0.1-1.0); BLOOD UREA NITROGEN 10 MG/DL (7-18); BUN/CREATININE RATIO 15.2 (5.4-32.0); CALCIUM 8.9 MG/DL (8.5-10.1); CHLORIDE 108 MMOL/L (99-107); CREATININE 0.66 MG/DL (0.60-1.10); GLUCOSE 91 MG/DL (70-104); SODIUM 144 MMOL/L (135-145); TOTAL CARBON DIOXIDE 23.7 MMOL/L (24-32); TOTAL PROTEIN 6.5 G/DL (6.4-8.2); eGFR > 90 ML/MIN
[2021-10-05] MEDS ORDERED: finasteride 5mg tablet PO SCH (08:00)
[2021-10-05] MEDS ORDERED: pantoprazole 40mg Tablet.DR PO SCH (08:00)
[2021-10-05] MEDS ORDERED: tamsulosin 0.4mg capsule PO SCH (08:00)
[2021-10-05] MEDS ORDERED: buPROPion SR 150mg tablet PO SCH (08:00)
[2021-10-05] MEDS ORDERED: venlafaxine XR 75mg capsule (Q24H) PO SCH (08:00)
[2021-10-05] MEDS ORDERED: atorvastatin 10mg tablet PO SCH (08:00)
[2021-10-05] MEDS ORDERED: multivitamins, therapeutics tablet PO SCH (08:00)
[2021-10-05] MEDS ORDERED: non-formulary drug (Acetaminophen 1 TAB) PO SCH (08:00)
[2021-10-05] MEDS: nicotine 21mg patch - 24 hr TD SCH (09:26)
[2021-10-05] MEDS: traMADol 50MG tablet PO SCH (09:29)
[2021-10-05] MEDS: lamoTRIgine 100mg tablet PO SCH (09:29)
[2021-10-05] MEDS: trihexyphenidyl 2mg tablet PO SCH (09:29)
[2021-10-05] MEDS: levetiracetam 250mg tablet PO SCH (09:29)
[2021-10-05] MEDS: haloperidol 5mg tablet PO SCH (09:30)
[2021-10-05] MEDS: clonazePAM 1mg tablet PO SCH (09:30)
[2021-10-05 10:05] LABS: BASOPHILS # (AUTO) 0.1 X10'3 (0-0.2); EOSINOPHILS # (AUTO) 0.2 X10'3 (0-0.9); MEAN PLATELET VOLUME 8.2 FL (7.4-10.4); RED BLOOD COUNT 4.59 X10'6 (4.70-6.10)
[2021-10-05 10:07] LABS: BASOPHILS % (AUTO) 1.5 % (0-1); EOSINOPHILS % (AUTO) 2.6 % (0-6); HEMATOCRIT 29.1 % (42.0-52.0); HEMOGLOBIN 8.8 g/dl (14.0-17.9); LYMPHOCYTES # (AUTO) 0.8 X10'3 (1.1-4.8); LYMPHOCYTES % (AUTO) 11.6 % (21-51); MEAN CORPUSCULAR HEMOGLOBIN 19.2 PG (27.0-31.0); MEAN CORPUSCULAR HGB CONC 30.2 g/dL (33.0-36.5); MEAN CORPUSCULAR VOLUME 63.4 FL (78-98); MONOCYTES # (AUTO) 0.5 X10'3 (0-0.9); MONOCYTES % (AUTO) 7.6 % (2-12); NEUTROPHILS # (AUTO) 5.1 X10'3 (1.8-7.7); NEUTROPHILS % (AUTO) 76.7 % (42-75); PLATELET COUNT 366 X10'3 (140-440); RED CELL DISTRIBUTION WIDTH 30.1 % (11.5-14.5); WHITE BLOOD COUNT 6.7 X10'3 (4.5-11.0)
[2021-10-05 10:32] LABS: PLATELET ESTIMATE NORMAL
[2021-10-05 10:34] LABS: ANISOCYTOSIS 3+; MICROCYTOSIS 2+; SCHISTOCYTES FEW; TARGET CELLS FEW; TEAR DROP CELLS FEW
[2021-10-05 10:35] LABS: ELLIPTOCYTES FEW; HYPOCHROMASIA 2+
[2021-10-05 11:00] VITALS: BP 128/91
--- NOTE | 2021-10-05 12:30 | NUR ---
Discharge instructions reviewed and questions answered. IV removed, catheter intact. Patient wheeled down to lobby by floor aid and taken by [facility]. Patient stable upon discharge.
== END 2021-10-05 12:21 | disposition home or self-care (01) | DRG 663 ==
LOC: ER 20:14 → UNDOADMIN 21:46 → ED HOLD 21:46 → PCU 3S 10-04 01:15 → ED HOLD 10-04 01:15
PROVIDERS: ADMIT Family Medicine; ATTEND Family Medicine
PROC: 30233N1 Transfusion of Nonautologous Red Blood Cells into Peripheral Vein, Percutaneous Approach (ICD-10-PCS; principal; 2021-10-03)
DX: D50.0 Iron deficiency anemia secondary to blood loss (chronic) (principal); K92.2 Gastrointestinal hemorrhage, unspecified; E11.9 Type 2 diabetes mellitus without complications; E78.00 Pure hypercholesterolemia, unspecified; E78.5 Hyperlipidemia, unspecified; N40.0 Benign prostatic hyperplasia without lower urinary tract symptoms; E86.1 Hypovolemia; F20.9 Schizophrenia, unspecified; K44.9 Diaphragmatic hernia without obstruction or gangrene; G40.909 Epilepsy, unspecified, not intractable, without status epilepticus; G47.00 Insomnia, unspecified; G89.4 Chronic pain syndrome; K22.70 Barrett's esophagus without dysplasia; J44.9 Chronic obstructive pulmonary disease, unspecified; Z85.528 Personal history of other malignant neoplasm of kidney; Z86.11 Personal history of tuberculosis; Z87.11 Personal history of peptic ulcer disease; Z90.5 Acquired absence of kidney; Z72.0 Tobacco use; Z88.0 Allergy status to penicillin; Z79.899 Other long term (current) drug therapy; Z88.8 Allergy status to other drugs, medicaments and biological substances; Z71.6 Tobacco abuse counseling
CPT/HCPCS: 36415; 36430; 70450; 71045; 80053; 80061; 80305; 80320; 82550; 82948; 83036; 83690; 83735; 83880; 84100; 84443; 84484; 85007; 85008; 85025; 85027; 85610; 85730; 86885; 86900; 86901; 86920; 87081; 97116; 97161; 97530; 99285; C9113; G0378; J1815; J7030; J7040; J7050; J7120; P9016; Q0177